=== PATIENT | male | born 1960 | race Caucasian/White ===

== ENCOUNTER 2023-12-11 07:19 | Emergency (ER) | payer MEDICARE, OTHER ==
[2023-12-11 07:30] VITALS: BP 129/86; PULSE 93; RESP 18; TEMP 97.7; BMI 35.2
[2023-12-11] MEDS ORDERED: ACETAMINOPHEN 325 MG TABLET (FP) ONE (08:21)
[2023-12-11] MEDS: ACETAMINOPHEN 500 MG TABLET (FP) PO ONE (08:28)
[2023-12-11] MEDS ORDERED: oxyCODONE HCL 5 MG TABLET ONE (09:07)
[2023-12-11] MEDS: oxyCODONE HCL 5 MG TABLET PO ONE (09:12)
== END 2023-12-11 11:15 | disposition home or self-care (01) ==
LOC: JER 07:19
DX: S39.92XA Unspecified injury of lower back, initial encounter (principal); W10.8XXA Fall (on) (from) other stairs and steps, initial encounter
CPT/HCPCS: 72131-TC; 72170-TC-FY; 72220-TC-FY; 99284-25